=== PATIENT | female | born 1985 | race Caucasian/White ===

== ENCOUNTER 2022-06-26 01:00 | Emergency (ER) | payer MEDICARE, MEDICAID, SELFPAY ==
[2022-06-26 01:09] VITALS: BP 130/74; PULSE 128; RESP 18; TEMP 36.8; O2SAT 96
[2022-06-26 01:13] VITALS: BP 130/70; BP 130/74; PULSE 129; PULSE 70; RESP 20; O2SAT 95; BMI 25.4
--- NOTE | 2022-06-26 01:25 | PC.NURSE ---
pt states she uses [facility] in [facility] . none found.
--- NOTE | 2022-06-26 01:54 | ED_ITS ---
HPI - Alcohol General Chief Complaint: ETOH/Substance Use Stated Complaint: ETOH Time Seen by Provider: 06/26/22 01:54 Source: patient Mode of arrival: EMS Limitations: no limitations History of Present Illness HPI narrative: Patient alcoholic found intoxicated on the street brought by EMS patient denies any SI or HI refused to go to detox does not want any help no fall no nausea vomiting abdominal pain Related Data Allergies Allergy/AdvReac Type Severity Reaction Status Date / Time azithromycin Allergy Anaphylaxis Verified 06/26/22 01:20 Review of Systems Review of Systems: Yes all other systems are reviewed and are negative [facility] Social History Social History Advance Directives: No Physical Exam ED Vital Signs: Vital Signs - 24 hr 06/26/22 01:09 06/26/22 01:13 06/26/22 02:52 Temperature 98.2 F Pulse Rate 128 H 129 H 98 Respiratory Rate 18 20 16 Blood Pressure 130/74 130/74 148/84 H Pulse Oximetry 96 95 96 Oxygen Delivery Method Room Air Room Air Room Air BMI result Body Mass Index 25.4 Appearance: Alert. Oriented X3. No acute distress. ETOH+ Eyes: PERRLA, No Nystagmus HEENT: Pharynx normal. Oral Mucosa moist atraumatic normocephalic Neck: Normal inspection. Neck supple. CVS: Normal heart rate and rhythm. Pulses normal. Respiratory: No respiratory distress. Equal air entry bilateral, no wheezing/rales/rhonchi Abdomen: Soft and nontender. Bowel sounds are present, no mass palpable, no CVA tenderness Skin: Skin warm and dry. Normal skin color. Normal skin turgor. Extremities: No lower extremity edema. No calf tenderness Neuro: Oriented X 3. No motor deficit. No sensory deficit.No cerebellar signs , cranial nerves II-XII intact MDM - Alcohol MDM Narrative Medical decision making narrative: Patient walking in a steady gait called her family does want to stay in the hospital discharge patient home advised to stop drinking follow with detox Discharge Plan Discharge Clinical Impression: Alcoholic intoxication Patient Disposition: Home, Self-Care Instructions: Alcohol Intoxication (ED) Additional Instructions: Stop drinking alcohol Follow-up with detox Interventions: ED Discharge Assessment Last Done: 06/26/22 03:29 Discharge Date/Time: 06/26/22 03:10
--- NOTE | 2022-06-26 02:48 | PC.NURSE ---
Pt A+Ox3, walks with steady gait, Sister Carmen to drive her home.
[2022-06-26 02:52] VITALS: BP 148/84; PULSE 98; RESP 16; O2SAT 96
== END 2022-06-26 03:10 | disposition home or self-care (01) ==
PROVIDERS: Emergency Provider Internal Medicine
DX: F10.920 Alcohol use, unspecified with intoxication, uncomplicated (principal); Y90.9 Presence of alcohol in blood, level not specified
CPT/HCPCS: 99282; 99284

== ENCOUNTER 2025-06-18 15:25 | Observation (INO) | payer MEDICARE, MEDICAID, SELFPAY ==
--- NOTE | ~2025-06-18 | CT_ITS ---
EXAMINATION: CT HEAD WITHOUT CONTRAST (STROKE PROTOCOL) CLINICAL INFORMATION: Stroke protocol. [Dysarthria. Difficulty walking. COMPARISON: None available. TECHNIQUE: Contiguous axial imaging was performed from the skull base to vertex without intravenous administration of contrast. This CT examination was performed using dose optimization techniques as appropriate, variously including the following: *Automated exposure control *Adjustment of mA and/or kV according to patient size (this includes techniques or standardized protocols for targeted exams where dose is matched to indication/reason for exam; i.e. extremities or head) *Use of iterative reconstruction technique DLP: 609 mGy centimeter. FINDINGS: Patient's motion artifact. No acute intracranial hemorrhage, mass effect, midline shift, hydrocephalus or herniation. [place]connor-white matter differentiation is normal. Posterior cranial fossa contents demonstrated no acute hemorrhage or gross mass effect. Sellar/suprasellar region demonstrated no gross masses. Normal position of the cerebellar tonsils. No air-fluid levels in the paranasal sinuses. No acute fracture in the bony calvarium. Tympanic cavities and mastoid cells are aerated. Pneumatized left petrous apex, congenital. CT/CT head for STROKE IMPRESSION: No acute intracranial hemorrhage. No acute brain abnormality by CT. This critical result was discussed via tiger connect with Dr. Josefina Muniz, emergency physician at 3:55 PM hours on June 18, 2025. It was ascertained that the content and urgency of the report was understood at the time of direct communication. Electronically signed by: Austin Sheridan MD 06/18/2025 03:57 PM EDT
--- NOTE | ~2025-06-18 | CT_ITS ---
EXAMINATION: CTA NECK WITH CONTRAST (STROKE) CTA BRAIN WITH CONTRAST (STROKE) CLINICAL INFORMATION: Suspect acute stroke. Assess for major vessel occlusion. Please call report. COMPARISON: None available. TECHNIQUE: CTA of the head and neck was performed in the axial plane from the mediastinum to the skull vertex using 70 mL Omnipaque 350 intravenous contrast. Additional reformatted multiplanar images including maximum intensity projection MIP images are generated on the CT workstation. This CT examination was performed using dose optimization techniques as appropriate, variously including the following: *Automated exposure control *Adjustment of mA and/or kV according to patient size (this includes techniques or standardized protocols for targeted exams where dose is matched to indication/reason for exam; i.e. extremities or head) *Use of iterative reconstruction technique FINDINGS: The degree of stenosis determined by criteria similar to NASCET. CT BRAIN: Contrast CT brain reveals no abnormal enhancement, mass or mass effect. CHEST AND NECK CTA: Visualized thoracic aorta is of normal caliber without aneurysm or dissection. There is mild ectasia of the right brachiocephalic artery but widely patent. The left common carotid and subclavian artery are widely patent. Visualized bilateral common carotid, bifurcation, bulb and bilateral proximal internal carotid arteries are patent throughout their entire course. Bilateral external carotid arteries are patent as well. Both vertebral arteries are codominant and patent in their entire course of the neck. The major intracranial venous sinuses are patent. The jugular veins are patent as well. BRAIN CTA: Both code and vertebral arteries March the form a basal artery. The basilar artery is of normal caliber without any aneurysm or obstruction. Bilateral posterior cerebral, superior cerebellar, bilateral anterior inferior cerebellar and bilateral posterior inferior cerebellar arteries are widely patent. Bilateral petrous, cavernous, supraclinoid ICA segments of internal carotid artery are widely patent. There is normal bifurcation of the carotid arteries into anterior and middle several arteries. Both middle and anterior cerebral arteries are patent. No evidence of aneurysm with thrombus is visualized. There is normal trifurcation of middle cerebral artery branches. There is normal espinal-white matter parenchymal vascularity seen throughout the cerebral hemispheres as well as cerebellar hemisphere. CT NECK: Visualized bilateral parotid, submandibular gland and thyroid lobes are symmetrical. The airways appears widely patent. The tonsils of bilateral symmetrical. The oral cavity is limited evaluation secondary to dental artifact. The prevertebral and the paravertebral soft tissues are normal. The airway is widely patent. The lung apices are clear. Incidental finding of bilateral augmented breasts are noted. CT/CT angio head neck STROKE IMPRESSION: Unremarkable CTA neck and brain. Unremarkable contrast-enhanced CT brain and neck. This critical test result is communicated to: Dr. Josefina Muniz in ER by phone at 4:18 PM Electronically signed by: Walter Piper MD 06/18/2025 04:20 PM EDT
--- NOTE | ~2025-06-18 | MR_ITS ---
CLINICAL HISTORY: Stroke r o --- Additional Notes or Special Instructions: Pt with slurred speech and unsteady gait noted by mother . Questioned TIAPt moved thru the whole scan despite multiple reminders, cushions supported head. Scanned Blades as possible. Unable to repeat MR Brain without intravenous contrast Comparison: Head CT from 06/18/2025 Findings: Multiple sequences are degraded by motion artifacts. No restricted diffusion arterial territorial infarction. No definite acute small infarction accounting for motion artifacts. No midline shift or hydrocephalus. Perivascular spaces noted particularly in the left basal ganglia region (image 13 of series 8). Linear artifacts including about superior frontal gyri and periphery of the brain, including repeated attempted diffusion imaging. No acute intracranial hemorrhage or peripheral siderosis accounting for artifacts. Mild fluid and mucosal thickening of the multifocal paranasal sinuses. Trace right and small left mastoid effusions. Orbits are unremarkable for technique and artifacts. Question soft tissue swelling and air-fluid of the superficial scalp, including left frontal convexity. IMPRESSION: 1. No restricted diffusion acute brain infarction, accounting for artifacts. 2. Essentially normal noncontrast signal of the brain parenchyma, accounting for artifacts. This document has been electronically signed by: Jose Patel MD on 06/18/2025 20:10:22
--- NOTE | 2025-06-18 15:34 | ECG_ITS ---
Test Reason : STROKE Blood Pressure : */* mmHG Vent. Rate : 113 BPM Atrial Rate : 113 BPM P-R Int : 146 ms QRS Dur : 84 ms QT Int : 340 ms P-R-T Axes : 58 26 51 degrees QTcB Int : 466 ms Sinus tachycardia Otherwise normal ECG No previous ECGs available Referred By: Josefina Muniz Electronically Signed By: Tushar Jenkins
[2025-06-18 15:43] LABS: Prothrombin Time Whole Bld POC 10.1 sec (11.1-13.5); ~PT, ~INR - Anti Coag Clinic 0.8 (0.9-1.1)
[2025-06-18 15:45] LABS: MANUAL DIFF FLAG NO
[2025-06-18 15:46] LABS: Hematocrit 45.6 % (37.0-47.0); Hemoglobin 16.7 g/dl (12.0-16.0); Imm Gran Abs Auto 0.03 X10*3/uL (0.00-0.03); Imm Gran Pct Auto 0.3 % (0.0-0.4); Lymphocytes Absolute Auto 2.8 X10*3/uL (1.2-4.9); Mean Corpuscular HGB Conc 36.6 g/dl (31.0-35.0); Mean Corpuscular Hemoglobin 32.1 pg (27.0-33.0); Mean Corpuscular Volume 87.5 fL (80.0-98.0); NRBC Abs Auto 0.000 X10*3/uL (0.0-0.012); NRBC Pct Auto 0.0 /100WBC (0.0-0.2); Platelet Count 201 X10*3/uL (160-400); Red Blood Count 5.21 X10*6/uL (4.20-5.50); White Blood Count 9.6 X10*3/uL (4.8-10.8)
[2025-06-18 16:02] VITALS: BP 122/87; BP 133/80; PULSE 100; PULSE 130; RESP 18; TEMP 36.8; O2SAT 95; BMI 24.0
[2025-06-18 16:07] LABS: Appearance Urine Cloudy; Glucose Urine UA >=1000 mg/dL (Negative); PH 5.5 (5.0-9.0); Specific Gravity - Urine 1.025 (1.005-1.025); UMIC TRIGGER UACC YES
--- NOTE | 2025-06-18 16:07 | PC.NURSE ---
Pt unable or unwilling to hold still during CT scan or EKG, despite repeated requests to hold still by staff; pt ambulated to BR with 1 assist, very unsteady on feet; pt requesting medication for anxiety at this time; made aware; pt remains restless on stretcher; equal movement of all extremities at this time
[2025-06-18 16:10] LABS: Alanine Aminotransferase 24 U/L (0-31); Albumin Level 4.6 g/dL (3.5-5.0); Alkaline Phosphatase 90 U/L (39-117); Anion Gap 15 (12-20); Aspartate Amino Transferase 23 U/L (5-31); Blood Urea Nitrogen 12 mg/dL (9-16); Calcium 9.5 mg/dL (8.4-10.2); Carbon Dioxide 21 mmol/L (22-29); Chloride 104 mmol/L (96-108); Creatinine Clr Calc Pharmacy 76.2; Estimated Glomerular Filt Rate > 60; Magnesium 1.9 mg/dL (1.6-2.6); Potassium 4.4 mmol/L (3.3-5.1); Sodium 136 mmol/L (135-145); Total Protein 7.9 g/dL (6.5-8.0)
--- NOTE | 2025-06-18 16:12 | ED_ITS ---
HPI - Neuro Symptoms/Deficit General Chief Complaint: Stroke Stated Complaint: STROKE ALERT Time Seen by Provider: 06/18/25 15:32 Source: patient and EMS Mode of arrival: EMS Limitations: other History of Present Illness ED Provider: Dr. Josefina Muniz HPI Narrative: Patient comes to the emergency room via ambulance, complaining of slurred speech and difficulty walking. According to EMS, the patient lives with her mother. The last time that the patient was seen well, at baseline was last night at 22:30 (17 hours ago). Per EMS, the patient's mother left the house at 04:30 in the morning today to go to work. Patient states that she woke up at 09:30, did not notice any symptoms. Around 10:30 when the patient's mother got back, the mother reported that patient has seemed to be unsteady on her feet. Patient's mother states that the patient had slurred speech. On arrival, patient does have a bit of slurred speech, denies any recent EtOH or drug use. Overall, patient is poor historian. Patient states that her speech does sound different to her. Otherwise, patient states that she has no weakness in upper or lower extremities Related Data Allergies Allergy/AdvReac Type Severity Reaction Status Date / Time azithromycin Allergy Anaphylaxis Verified 06/18/25 16:05 Review of Systems 2 Review of Systems: Constitutional : No Weight loss, No Fever, No Chills, No Night Sweats, No Fatigue, No Malaise ENT/Mouth : No Hearing loss, No Ear Pain, No Nasal Congestion, No Sinus Pain, No Hoarseness, No sore throat, No Rhinorrhea, No Swallowing Difficulty Eyes: No Eye Pain, No Swelling, No Redness, No Foreign Body, No Discharge, No Vision Changes Cardiovascular : No Chest Pain, No SOB, No Dyspnea on Exertion, No Orthopnea, No Edema, No Palpitations Respiratory : No Cough, No Sputum, No Wheezing, No Smoke Exposure, No Dyspnea Gastrointestinal : No Nausea, No Vomiting, No Diarrhea, No Constipation, No abdominal Pain, No Hematochezia, No Melena Genitourinary : no irregular bleeding, No Dysuria, No Urinary Frequency, No Hematuria, No Urinary Incontinence, No Urgency, No Flank Pain, No Urinary Flow Changes, No Hesitancy Musculoskeletal : No joint pain, No Myalgias, No Joint Swelling Skin : No Skin Lesions, No rash Neuro : Earlier today, patient's mother reported unsteady gait, slurred speech Psych : No Anxiety/Panic, No Depression, No SI/HI/AH/VH, No Social Issues, Heme/Lymph: No Bruising, No Bleeding,No Lymphadenopathy Endocrine : No Polyuria, No Polydipsia, No Temperature Intolerance [facility] Social History Social History Alcohol intake: unknown Physical Exam 2 Exam: Exam: Appearance: Alert. Oriented X3. Patient is poor historian Eyes: Pupils equal, round and reactive to light. ENT: Pharynx normal. Neck: Normal inspection. Neck supple. No lymph nodes noted. No crepitus CVS: Normal heart rate and rhythm. Pulses normal. Normal S1 and S2 Respiratory: No respiratory distress. Breath sounds normal. No Wheezing. No rales Abdomen: Soft and nontender. No rigidity. No distention. Skin: Skin warm and dry. Normal skin color. Normal skin turgor. Extremities: No lower extremity edema. No Lacerations. No Rash Neuro: Patient does have slight slurred speech, cranial nerves 2-12 grossly intact, NIH score 1 Psych: calm, cooperative, normal affect Vital Signs: Vital Signs: Last Vital Signs Temp 98.2 F 06/18/25 16:02 Pulse 100 06/18/25 16:02 Resp 18 06/18/25 16:02 BP 122/87 06/18/25 16:02 Pulse Ox 95 06/18/25 16:02 O2 Del Method Room Air 06/18/25 16:02 BMI result Body Mass Index 24.0 Course Course Course Narrative: Patient does have slurred speech. Patient is poor historian. Overall, it is very difficult to determine at what time the patient had the onset of symptoms. The last time that the patient was seen well was 17 hours prior to arrival. Patient woke up around 9-930 in the morning in the morning, patient states that she is not sure if she noticed something wrong with herself. Overall, patient is outside of the window of treatment with TNK CT scans of the head and neck pending, labs pending. Medical Decision Making Medical Decision Making [facility] Narrative: My interpretation of labs: No significant abnormality in patient's hematology or chemistry, urinalysis positive for UTI, urine toxicology positive for marijuana, negative for other drugs of abuse, negative alcohol CT scan of the head without contrast negative, CTA of head and neck do not show any acute abnormality. Overall, patient's speech did improve It is possible that patient had TIA versus CVA versus side-effect of THC I discussed the patient with Dr. Wiley from the Medicine team Differential Diagnosis Differential Diagnoses: The differential diagnosis associated with the presentation includes (As above) Admission/Observation Consideration of admission/observation: Escalation of care including admission/observation considered Consult Healthcare Provider Management of the patient was discussed with: Hospitalist Lab Data [facility] Lab Attestation statement: I reviewed the patient's lab results. 06/18/25 15:36 06/18/25 15:36 Labs: Lab Results 06/18/25 06/18/25 Range/Units 15:36 15:58 WBC 9.6 (4.8-10.8) X10*3/uL RBC 5.21 (4.20-5.50) X10*6/uL Hgb 16.7 H (12.0-16.0) g/dl Hct 45.6 (37.0-47.0) % MCV 87.5 (80.0-98.0) fL MCH 32.1 (27.0-33.0) pg MCHC 36.6 H (31.0-35.0) g/dl RDW 11.8 (11.0-16.0) % Plt Count 201 (160-400) X10*3/uL MPV 9.2 L (9.4-12.3) fL Immature Gran % (Auto) 0.3 (0.0-0.4) % Neut % (Auto) 64.5 (45-73) % Lymph % (Auto) 28.7 (20-40) % [place] % (Auto) 5.5 (2-11) % Eos % (Auto) 0.6 (0-4) % Baso % (Auto) 0.4 (0-2) % Lymph # (Auto) 2.8 (1.2-4.9) X10*3/uL [place] # (Auto) 0.5 (0.1-1.2) X10*3/uL Eos # (Auto) 0.1 (0.0-0.4) X10*3/uL Baso # (Auto) 0.0 (0.0-0.2) X10*3/uL Abs Immat Gran (auto) 0.03 (0.00-0.03) X10*3/uL Absolute Neuts (auto) 6.2 (2.0-8.3) x10*3/uL Absolute Nucleated RBC 0.000 (0.0-0.012) X10*3/uL Nucleated RBC % (auto) 0.0 (0.0-0.2) /100WBC Hold Purple Top SEE NOTE Whole Blood PT 10.1 L (11.1-13.5) sec Whole Blood INR 0.8 L (0.9-1.1) Hold Blue Top SEE NOTE Sodium 136 (135-145) mmol/L Potassium 4.4 (3.3-5.1) mmol/L Chloride 104 (96-108) mmol/L Carbon Dioxide 21 L (22-29) mmol/L Anion Gap 15 (12-20) BUN 12 (9-16) mg/dL Creatinine 0.76 (0.5-1.4) mg/dL Estim Creat Clear Calc 76.2 Estimated GFR > 60 Random Glucose 281 H (60-115) mg/dL Calcium 9.5 (8.4-10.2) mg/dL Magnesium 1.9 (1.6-2.6) mg/dL Total Bilirubin 0.6 (0.0-1.0) mg/dL Direct Bilirubin 0.1 (0.0-0.5) mg/dL AST 23 (5-31) U/L ALT 24 (0-31) U/L Alkaline Phosphatase 90 (39-117) U/L Troponin I High Sens < 2.7 (<3.5-17.0) ng/L Total Protein 7.9 (6.5-8.0) g/dL Albumin 4.6 (3.5-5.0) g/dL Hold Green Top See Note Hold Yellow Top See Note Urine Color Yellow Urine Appearance Cloudy Urine pH 5.5 (5.0-9.0) Ur Specific [place] 1.025 (1.005-1.025) Urine Protein 30 (1+) H (Neg-Trace) mg/dL Urine Glucose (UA) >=1000 H (Negative) mg/dL Urine Ketones Trace (Negative) mg/dL Urine Blood Large (3+) H (Negative) Urine Nitrite Negative (Negative) Ur Leukocyte Esterase Small (1+) H (Negative) Urine RBC >20 H (0-2) /HPF Urine WBC 11-20 H (0-5) /HPF Ur Squamous Epith Cells 11-20 (0-2) /HPF Urine Bacteria 2+ (None Seen) Hyaline Casts 0-2 (0-2) /LPF Urine Opiates Screen Not Detected (Not Detect) Ur Buprenorphine Scrn Not Detected (Not Detect) ng/mL Ur Oxycodone Screen Not Detected (Not Detect) ng/mL Urine Methadone Screen Not Detected (Not Detect) ng/mL Urine Fentanyl Screen Not Detected (Not Detect) Ur Barbiturates Screen Not Detected (Not Detect) Ur Phencyclidine Scrn Not Detected (Not Detect) Ur Amphetamines Screen Not Detected (Not Detect) U Benzodiazepines Scrn Not Detected (Not Detect) Urine Cocaine Screen Not Detected (Not Detect) U Marijuana (THC) Screen POSITIVE H (Not Detect) Ethyl Alcohol < 10 mg/dL Independent Interpretation I performed an independent interpretation of an: CT Scan Radiology Impression Discussion of test interpretation with radiology: I discussed test interpretation with the radiologist and I have reviewed the radiologist's reading. Radiologist Impression: CT BRAIN: Contrast CT brain reveals no abnormal enhancement, mass or mass effect. CHEST AND NECK CTA: Visualized thoracic aorta is of normal caliber without aneurysm or dissection. There is mild ectasia of the right brachiocephalic artery but widely patent. The left common carotid and subclavian artery are widely patent. Visualized bilateral common carotid, bifurcation, bulb and bilateral proximal internal carotid arteries are patent throughout their entire course. Bilateral external carotid arteries are patent as well. Both vertebral arteries are codominant and patent in their entire course of the neck. The major intracranial venous sinuses are patent. The jugular veins are patent as well. BRAIN CTA: Both code and vertebral arteries March the form a basal artery. The basilar artery is of normal caliber without any aneurysm or obstruction. Bilateral posterior cerebral, superior cerebellar, bilateral anterior inferior cerebellar and bilateral posterior inferior cerebellar arteries are widely patent. Bilateral petrous, cavernous, supraclinoid ICA segments of internal carotid artery are widely patent. There is normal bifurcation of the carotid arteries into anterior and middle several arteries. Both middle and anterior cerebral arteries are patent. No evidence of aneurysm with thrombus is visualized. There is normal trifurcation of middle cerebral artery branches. There is normal espinal-white matter parenchymal vascularity seen throughout the cerebral hemispheres as well as cerebellar hemisphere. CT NECK: Visualized bilateral parotid, submandibular gland and thyroid lobes are symmetrical. The airways appears widely patent. The tonsils of bilateral symmetrical. The oral cavity is limited evaluation secondary to dental artifact. The prevertebral and the paravertebral soft tissues are normal. The airway is widely patent. The lung apices are clear. Incidental finding of bilateral augmented breasts are noted. CT/CT angio head neck STROKE IMPRESSION: Unremarkable CTA neck and brain. Unremarkable contrast-enhanced CT brain and neck. NIH Stroke Scale Internal: Initial- Upon Arrival Level of Consciousness: Alert Level of Consciousness Questions: Answers both questions correctly Level of Consciousness Commands: Performs both tasks correctly Best Gaze: Normal Visual: No visual loss Facial Palsy: Normal Motor Arm (Right): No drift Motor Arm (Left): No drift Motor Leg (Right): No drift Motor Leg (Left): No drift Limb Ataxia: Absent Sensory: Normal Best Language: No aphasia Dysarthia: Mild to moderate dysarthria Extinction and Inattention: No abnormality Score: 1 Critical Care Time Critical Care Time Critical Care Time: Yes Total Critical Care Time: 60 Attestation: I have personally provided critical care time. Time includes review of lab data, radiology results, discussion with consultants, and monitoring for potential decompensation. Intervention performed as documented. Discharge Plan Discharge Clinical Impression: Transient cerebral ischemia Patient Disposition: Admitted As Inpatient Print Language: Thai
--- NOTE | 2025-06-18 16:12 | MHC.EDTECH ---
this tech, notified Mac broderick pt requested anxiety medicine. pt repeatly requesting it.
[2025-06-18 16:13] LABS: Troponin-I High Sensitivity < 2.7 ng/L (<3.5-17.0)
[2025-06-18 16:17] LABS: Cannabinoid Screen Urine POSITIVE (Not Detect)
[2025-06-18 16:19] LABS: UACC Culture Trigger YES
[2025-06-18 16:35] LABS: Glucose, Whole Blood 256 mg/dL (60-115)
--- NOTE | 2025-06-18 16:56 | PM.IMHP ---
History of Present Illness Date of Service: 06/18/25 Attending physician on admission: [facility] Chief Complaint: Slurred speach Pt is a 39-year-old female with a PMH significant for?dmf-umfdepz-hraulsixs type 2 diabetes who presents to the ED with?slurred speech and unsteady gait since earlier this morning. Pt went to bed in her normal state of health at approximately 23:30 last night. Pt lives with her mother who noted pt was having difficulty walking and had slurred speech and approximately 10 30 this morning. Pt herself reports when she awoke she felt in her normal state of health, and knew that she was having difficulty speaking. Reports felt ?off balance? and was bumping into berry, as well as falling to the floor at least once. Pt denies any similar experience in the past. Denies fogginess and thinking. No headache. No acute changes in vision. Denies hemiparesis or difficulty grabbing objects. Currently denies any musculoskeletal pain, including arms, legs, hips, or shoulders. Currently reports feels like she is back to baseline with speaking. Pt denies alcohol or illicit substance use, though notes she does smoke marijuana. Last use last night when she smokes marijuana that was provided by her father in law. Is uncertain of it origin and this was her first use of that particular stash. In the ED pt with elevated HR of 100, vitals otherwise stable and WNL. Labs were overall grossly unremarkable and around baseline for pt. No leukocytosis. No significant electrolyte abnormalities. Renal and hepatic function WNL. UA concerning for possible UTI. CXR showed CT?of head negative for acute intracranial hemorrhage or brain abnormality. CTA of head/neck negative for acute abnormality. EKG demonstrated normal sinus rhythm without evidence of significant ischemia. Pt was treated in the ED with ceftriaxone and aspirin. Pt is admitted to the hospital under observation for treatment and further evaluation of slurred speech and ataxia concerning for possible TIA. Review of Systems Review of Systems: Negative except for that which is stated in the HPI. [facility] Medical History (Updated 06/18/25 @ 19:22 by NINOSKA Hicks) Non-insulin dependent type 2 diabetes mellitus Social History Alcohol intake: unknown Patient Tobacco Use Status: Current everyday Tobacco user Meds Allergies Allergy/AdvReac Type Severity Reaction Status Date / Time azithromycin Allergy Anaphylaxis Verified 06/18/25 16:05 Active Medications: Current Medications Sodium Chloride (0.9 % Sodium Chloride Flush 3 Ml Syringe) 3 ml IVFLUSH QSHIFT [facility] Home Medications ?Medication ?Instructions ?Recorded ?Confirmed ?Last Taken ?Type metformin 500 mg tablet,extended 1,000 mg PO BID 06/18/25 06/18/25 06/18/25 History release 24 hr Physical Exam Vital Signs and Narrative: Vital Signs: Last Vital Signs Temp 98.2 F 06/18/25 16:02 Pulse 100 06/18/25 16:02 Resp 18 06/18/25 16:02 BP 122/87 06/18/25 16:02 Pulse Ox 95 06/18/25 16:02 O2 Del Method Room Air 06/18/25 16:02 BMI result Body Mass Index 24.0 General: AOx3, no acute distress Resp: CTA bilaterally CVS: S1, S2, RRR GI: +BS, NT, no distention Skin: Warm, dry Neuro: Cranial nerves II-XII grossly intact bilaterally. Motor grossly intact bilaterally. Negative pronator drift. Face symmetric and full, no dysarthria or facial droop noted. Sensation to light touch intact on face, as well as upper and lower extremities bilaterally. Strength full and symmetric of upper and lower extremities bilaterally. Tongue midline. Extremities: No edema Psych: Appropriate affect Results Labs 06/18/25 15:36 06/18/25 15:36 Labs: Laboratory Results - last 24 hr 06/18/25 06/18/25 06/18/25 15:28 15:36 15:58 MCV 87.5 MCH 32.1 MCHC 36.6 H RDW 11.8 Plt Count 201 MPV 9.2 L Immature Gran % (Auto) 0.3 Neut % (Auto) 64.5 Lymph % (Auto) 28.7 [place] % (Auto) 5.5 Eos % (Auto) 0.6 Baso % (Auto) 0.4 Lymph # (Auto) 2.8 [place] # (Auto) 0.5 Eos # (Auto) 0.1 Baso # (Auto) 0.0 Abs Immat Gran (auto) 0.03 Absolute Neuts (auto) 6.2 Absolute Nucleated RBC 0.000 Nucleated RBC % (auto) 0.0 Hold Purple Top SEE NOTE Whole Blood PT 10.1 L Whole Blood INR 0.8 L Hold Blue Top SEE NOTE Anion Gap 15 Estim Creat Clear Calc 76.2 Estimated GFR > 60 POC Glucose 256 H Random Glucose 281 H Calcium 9.5 Magnesium 1.9 Total Bilirubin 0.6 Direct Bilirubin 0.1 AST 23 ALT 24 Alkaline Phosphatase 90 Total Protein 7.9 Albumin 4.6 Hold Green Top See Note Hold Yellow Top See Note Urine Color Yellow Urine Appearance Cloudy Urine pH 5.5 Ur Specific [place] 1.025 Urine Protein 30 (1+) H Urine Glucose (UA) >=1000 H Urine Ketones Trace Urine Blood Large (3+) H Urine Nitrite Negative Ur Leukocyte Esterase Small (1+) H Urine RBC >20 H Urine WBC 11-20 H Ur Squamous Epith Cells 11-20 Urine Bacteria 2+ Hyaline Casts 0-2 Urine Opiates Screen Not Detected Ur Buprenorphine Scrn Not Detected Ur Oxycodone Screen Not Detected Urine Methadone Screen Not Detected Urine Fentanyl Screen Not Detected Ur Barbiturates Screen Not Detected Ur Phencyclidine Scrn Not Detected Ur Amphetamines Screen Not Detected U Benzodiazepines Scrn Not Detected Urine Cocaine Screen Not Detected U Marijuana (THC) Screen POSITIVE H Ethyl Alcohol < 10 Imaging Radiologist's Impressions: Impressions Head CT 06/18/25 14:39 IMPRESSION: No acute intracranial hemorrhage. No acute brain abnormality by CT. This critical result was discussed via tiger connect with Dr. Josefina Muniz, emergency physician at 3:55 PM hours on June 18, 2025. It was ascertained that the content and urgency of the report was understood at the time of direct communication. Electronically signed by: Austin Sheridan MD 06/18/2025 03:57 PM EDT RP Head/Neck CTA 06/18/25 15:44 IMPRESSION: Unremarkable CTA neck and brain. Unremarkable contrast-enhanced CT brain and neck. This critical test result is communicated to: Dr. Josefina Muniz in ER by phone at 4:18 PM Electronically signed by: Walter Piper MD 06/18/2025 04:20 PM EDT RP Assessment and Plan (1) Ataxia: Status: Acute (2) Slurred speech: Status: Acute Plan Pt is a 39-year-old female with a PMH significant for?hai-czfxagh-kcbkajchb type 2 diabetes who presents to the ED with?slurred speech and unsteady gait since earlier this morning. Pt is admitted to the hospital under observation for treatment and further evaluation of slurred speech and ataxia concerning for possible TIA. Slurred speech and ataxia Noted this morning by mother, last known well time 23:30 last night Currently resolved, pt appears back to baseline; no focal deficits noted CTA of head and CTA of head/neck negative for acute abnormalities Will check MRI of head/brain Lipid profile Neurology consult Monitor on telemetry Yyu-tfjdudv-hsgatufxy type [address] on sliding scale insulin, diabetic diet Nicotine dependence Currently smoke half a pack a day NRT Full Code Attending:?Dr. Wiley DVT Prophylaxis: Pt ambulatory, here for observation Pt will be admitted to the hospital under observation for treatment and further evaluation of slurred speech and ataxia concerning for possible TIA. Quality Stroke Does the patient have a stroke diagnosis?: No VTE Prior VTE?: No VTE Risk Level:: Medical - moderate - high VTE Device Contraindication: Treatment Not Indicated VTE Drug Contraindication: Treatment Not Indicated
[2025-06-18 17:10] LABS: Lipase 15 U/L (8-78)
[2025-06-18] MEDS: Aspirin Enteric Coated 325 MG TABLET.DR PO (17:10)
[2025-06-18 17:52] VITALS: BP 139/84; PULSE 100; RESP 18; O2SAT 96
--- NOTE | 2025-06-18 18:05 | PHA.MEDREC ---
Addendum entered by Tobi Gray RPh 06/18/25 18:09: [facility] rec reviewed Original Note: Pharmacy Consult ? Medication Reconciliation Pharmacy has completed the medication reconciliation. Patient reported she only takes Metformin ER 1,000 mg ( 2x 500mg) BID, last dose was this morning.
--- NOTE | 2025-06-18 19:54 | PC.NURSE ---
assumed care of pt, taken for MRI. Pt now back and resting comfortably. Pt respirations are even and unlabored.
--- NOTE | 2025-06-18 20:22 | PC.NURSE ---
pt taken for MRI prior to previous nurse administering Ativan to help with anxiety before MRI.
[2025-06-18 20:35] LABS: Glucose, Whole Blood 212 mg/dL (60-115)
--- NOTE | 2025-06-18 20:42 | PC.NURSE ---
pt medicated per MAR, 4 units per protocol (bs 212)
[2025-06-19] MEDS: 0.9 % Sodium Chloride Flush 3 ML SYRINGE IVFLUSH (01:43)
--- NOTE | 2025-06-19 05:28 | PC.NURSE ---
called pt mother Kaleigh for update. Advised pt will be stayiong for further observation. Mom states she will be coming in to visit with pt shortly.
[2025-06-19 05:49] VITALS: BP 125/84; PULSE 102; RESP 18; TEMP 36.6; O2SAT 98
[2025-06-19 07:55] VITALS: BP 131/71; PULSE 82; RESP 21; TEMP 36.6; O2SAT 95
[2025-06-19 07:55] LABS: Glucose, Whole Blood 288 mg/dL (60-115)
[2025-06-19 08:40] VITALS: BP 119/76; PULSE 99; RESP 16; TEMP 36.1; O2SAT 95
[2025-06-19 08:43] VITALS: BMI 23.1
--- NOTE | 2025-06-19 10:35 | MHC.CM.PN ---
Addendum entered by Ingrid Tovar RN 06/19/25 10:38: PT DISCHARGING HOME SELF CARE LATER TODAY, PT WILL CALL FAMILY FOR TRANSPORT. Original Note: MICHELA 06/19/25, EMR REVIEWED, PT W/TIA SYMPTOMS RESOLVES, CLEARED BY OT/PT. CM MET W/PT WHO REPORTS SHE LIVES W/FAMILY, DIS FULLY INDEP, DENIES USE OF DME/SERVICES AND GOAL IS HOME. PT VERIFIES PCP IS MARKOS JULIAN AT [facility] AND REPORTS SHE HAS A HCP AT HOME AND IT IS HER GMOTHER [phone], COPY REQUESTED.
[2025-06-19 11:00] LABS: Glucose, Whole Blood 188 mg/dL (60-115)
[2025-06-19 11:16] VITALS: BP 121/74; PULSE 91; RESP 18; TEMP 36.7; O2SAT 94
[2025-06-19 11:19] LABS: Cholesterol 295 mg/dL (<200); HDL Cholesterol 43 mg/dL (>40); Triglycerides 455 mg/dL (<150)
--- NOTE | 2025-06-19 12:06 | PM.NEUROCN ---
History of Present Illness Data of Consult Service Date: 06/19/25 Primary Care Provider: Unknown Physician HPI Reason for consult: Slurred speech and balance problems acutely This is a 39-year-old female with a h/o xcx-aackxuv-rmyzeklbr type 2 diabetes who presented to the ED with?slurred speech and unsteady gait since earlier this morning. Pt went to bed in her normal state of health at approximately 23:30 last night. Pt lives with her mother who noted she was having difficulty walking and had slurred speech and approximately 10:30 on the morning of admission. She said that when she awoke she felt in her normal state of health, and knew that she was having difficulty speaking. Reports felt ?off balance? and was bumping into berry, as well as falling to the floor at least once. Pt denies any similar experience in the past. Denies fogginess and thinking. No headache. No acute changes in vision. Denies hemiparesis or difficulty grabbing objects. Currently denies any musculoskeletal pain, including arms, legs, hips, or shoulders. Currently reports feels like she is back to baseline with speaking. Pt denies alcohol or illicit substance use, though notes she does smoke marijuana. Last use last night when she smokes marijuana that was provided by her father in law. Is uncertain of it origin and this was her first use of that particular stash.CT head and CTA head and neck were normal. MRI limited by movement without acute stroke. She now feels that she is back to normal PMFSH Past Medical History Medical History Non-insulin dependent type 2 diabetes mellitus Social History Social History Household Members: Family Housing: House Do you presently have visiting nurse or other home services: No Alcohol intake: unknown Patient Tobacco Use Status: Current everyday Tobacco user Tobacco use type: Cigarette Cigarette Packs Per Day: 0.5 Cigarettes Per Day: 10.0 Years Smoked: 30 Smoked in Last 30 Days: Yes Patient Interested in Nicotine Replacement: Yes Patient Given Instructions on How to Stop Smoking: No (pt refused) Use of substances other than those prescribed or required for medical reasons: Unknown Have you been hit, kicked, punched, or otherwise hurt by someone within the past year? If so, by whom?: No Do you feel safe in your current relationship?: No Current Relationship Is there a partner from a previous relationship who is making you feel unsafe now?: No Are you made to feel afraid or neglected: No Advance Directives: No Advance Directives Information Provided: Yes Do you have a plan to hurt others: No Plan Recently lost weight without trying: No Nutrition Risks: Dental problems Patient : No : No Poor oral hygiene: Yes service: No Meds Allergies Allergy/AdvReac Type Severity Reaction Status Date / Time azithromycin Allergy Anaphylaxis Verified 06/18/25 16:05 Active Medications: Current Medications Acetaminophen (Acetaminophen 325 Mg Tablet) 650 mg PO Q6H PRN PRN Reason: Pain, Mild 1-3,fever,headache Aspirin (Aspirin 81 Mg Tab.Chew) 81 mg PO DAILY FORMERLY [facility], [facility]1983 Last Admin: 06/19/25 08:04 Dose: 81 mg Calcium Carbonate (Calcium Carbonate 750 Mg Tab.Chew) 750 mg PO Q4H PRN PRN Reason: Heartburn Dextrose (Dextrose 50 % 25 Gm/50 Ml Syringe) 25 gm IVPUSH Q15M PRN; Protocol PRN Reason: per Hypoglycemia Standing Ord. Glucose (Glucose Gel 15 Gm Gel..Gram.) 15 gm PO Q15M PRN; Protocol PRN Reason: per Hypoglycemia Standing Ord. Insulin Human Lispro (Insulin Lispro 100 Unit/Ml 3 Ml Vial) 0 unit SUBCUT QIDACHS FOR[facility]LY [facility], [facility]–1983; Protocol Last Admin: 06/19/25 11:37 Dose: 2 unit Magnesium Hydroxide (Milk Of Magnesia 30 Ml Oral.Susp) 30 ml PO DAILY PRN PRN Reason: Constipation Melatonin (Melatonin 3 Mg Tablet) 6 mg PO BEDTIME PRN PRN Reason: Insomnia Metformin HCl (Metformin Hcl Er 500 Mg Tab.Er.24h) 1,000 mg PO BID FOR[facility]LY [facility], [facility]1983 Last Admin: 06/19/25 08:04 Dose: 1,000 mg Nicotine (Nicotine 14 Mg Patch.Td24) 14 mg TRANSDERMA DAILY PRN PRN Reason: Nicotine Cravings Sodium Chloride (0.9 % Sodium Chloride Flush 3 Ml Syringe) 3 ml IVFLUSH QSHIFT FOR[facility]LY [facility], [facility] Last Admin: 06/19/25 08:21 Dose: Not Given Home Medications ?Medication ?Instructions ?Recorded ?Confirmed ?Last Taken ?Type metformin 500 mg tablet,extended 1,000 mg PO BID 06/18/25 06/18/25 06/18/25 History release 24 hr Physical Exam Vital Signs: Vital Signs: Last Vital Signs Temp 98.1 F 06/19/25 11:16 Pulse 91 06/19/25 11:16 Resp 18 06/19/25 11:16 BP 121/74 06/19/25 11:16 Pulse Ox 94 06/19/25 11:16 O2 Del Method Room Air 06/19/25 11:16 BMI result Body Mass Index 23.1 Neuro: Other: Normal nonfocal neurological examination Results Labs 06/18/25 15:36 06/18/25 15:36 Labs: Short CBC 06/18/25 Range/Units 15:36 WBC 9.6 (4.8-10.8) X10*3/uL Hgb 16.7 H (12.0-16.0) g/dl Hct 45.6 (37.0-47.0) % Plt Count 201 (160-400) X10*3/uL BMP 06/18/25 15:36 Sodium 136 Potassium 4.4 Chloride 104 Carbon Dioxide 21 L BUN 12 Creatinine 0.76 Calcium 9.5 Liver Function 06/18/25 Range/Units 15:36 Total Bilirubin 0.6 (0.0-1.0) mg/dL Direct Bilirubin 0.1 (0.0-0.5) mg/dL AST 23 (5-31) U/L ALT 24 (0-31) U/L Alkaline Phosphatase 90 (39-117) U/L Albumin 4.6 (3.5-5.0) g/dL Urine 06/18/25 Range/Units 15:58 Urine Color Yellow Urine Appearance Cloudy Urine pH 5.5 (5.0-9.0) Ur Specific [place] 1.025 (1.005-1.025) Urine Protein 30 (1+) H (Neg-Trace) mg/dL Urine Glucose (UA) >=1000 H (Negative) mg/dL Microbiology Microbiology Results: Microbiology 06/18/25 16:19 Urine clean catch - Clean Catch Midstream Urine Culture - Preliminary Culture too young to evaluate. Assessment and Plan (1) Slurred speech: Status: Acute Transient slurred speech and balance problems that have resolved spontaneously with negative neurological workup including MRI and CTA. One would be concerned of some sort of substance abuse. She does use marijuana. Nothing to suggest a migraine phenomena. No further neurological workup. She is cleared to be discharged from neurological perspective (2) Ataxia: Status: Acute Procedures Date of Service Date of Service: 06/19/25
[2025-06-19 15:17] VITALS: BP 126/83; PULSE 89; RESP 16; TEMP 36.1; O2SAT 95
--- NOTE | 2025-06-19 15:54 | PM.DS ---
DS: Providers Provider Date of Service: 06/19/25 Date of admission: 06/18/25 16:47 Date of discharge: 06/19/25 Primary care physician: Unknown Physician Consults: 06/18/25 16:52 Consult to Neurology Routine Consulting Provider: [facility] Reason for consultation: Slurred speech and unsteady gait, ?TIA DS: Diagnosis Discharge Diagnosis (1) Slurred speech: Status: Acute (2) Ataxia: Status: Acute DS: Summary Hospital Course Hospital Course: From admission HPI: Date of Service: 06/18/25 Attending physician on admission: [facility] Chief Complaint: Slurred speach Pt is a 39-year-old female with a PMH significant for?dgy-cwwcfah-rkswmvfeb type 2 diabetes who presents to the ED with?slurred speech and unsteady gait since earlier this morning. Pt went to bed in her normal state of health at approximately 23:30 last night. Pt lives with her mother who noted pt was having difficulty walking and had slurred speech and approximately 10 30 this morning. Pt herself reports when she awoke she felt in her normal state of health, and knew that she was having difficulty speaking. Reports felt ?off balance? and was bumping into berry, as well as falling to the floor at least once. Pt denies any similar experience in the past. Denies fogginess and thinking. No headache. No acute changes in vision. Denies hemiparesis or difficulty grabbing objects. Currently denies any musculoskeletal pain, including arms, legs, hips, or shoulders. Currently reports feels like she is back to baseline with speaking. Pt denies alcohol or illicit substance use, though notes she does smoke marijuana. Last use last night when she smokes marijuana that was provided by her father in law. Is uncertain of it origin and this was her first use of that particular stash. In the ED pt with elevated HR of 100, vitals otherwise stable and WNL. Labs were overall grossly unremarkable and around baseline for pt. No leukocytosis. No significant electrolyte abnormalities. Renal and hepatic function WNL. UA concerning for possible UTI. CXR showed CT?of head negative for acute intracranial hemorrhage or brain abnormality. CTA of head/neck negative for acute abnormality. EKG demonstrated normal sinus rhythm without evidence of significant ischemia. Pt was treated in the ED with ceftriaxone and aspirin. Pt is admitted to the hospital under observation for treatment and further evaluation of slurred speech and ataxia concerning for possible TIA. Hospital course: Pt was admitted to the hospital for difficulty walking and slurred speech concerning for possible TIA. Symptoms had resolved by the time they were admitted to the hospital, and imaging including CT of head, CTA of head/neck, and MRI of head/brain were all negative for acute intracranial abnormalities, including hemorrhage or acute infarct. Lipid profile was elevated with both triglycerides and total cholesterol. Pt was seen and evaluated by Neurology who thought symptoms were more related to marijuana use rather than anything neurological, and pt was cleared from a neurological perspective for discharge home. Pt will be discharged home on atorvastatin 20 mg daily at bedtime and with recommendation to follow up outpatient with PCP in 1-2 weeks for follow up and routine labs. Patient's UA was equivocal for acute UTI, and likely contaminated. Pt asymptomatic without dysuria or polyuria, and will not be discharged home on antibiotics. For wja-ovckhbn-hosazsoqm type 2 diabetes, continue metformin and diabetic diet. For nicotine dependence smoking cessation counseled. Time Attestation Discharge Coordination Time (in mins): 35 Quality: Safe Use of Opioids Does Pt have an Active Cancer Diagnosis on the Problem List?: No Quality: Stroke Does the patient have a stroke diagnosis?: No Physical Exam Exam: Exam: General: AOx3, no acute distress Resp: CTA bilaterally CVS: S1, S2, RRR GI: +BS, NT, no distention Skin: Warm, dry Neuro: Cranial nerves II-XII grossly intact bilaterally. Motor grossly intact bilaterally. Negative pronator drift. Face symmetric and full, no dysarthria or facial droop noted. Sensation to light touch intact on face, as well as upper and lower extremities bilaterally. Strength full and symmetric of upper and lower extremities bilaterally. Tongue midline. Extremities: No edema Psych: Appropriate affect Vital Signs: Vital Signs: Last Vital Signs Temp 97.0 F 06/19/25 15:17 Pulse 89 06/19/25 15:17 Resp 16 06/19/25 15:17 BP 126/83 06/19/25 15:17 Pulse Ox 95 06/19/25 15:17 O2 Del Method Room Air 06/19/25 15:17 BMI result Body Mass Index 23.1 DS: Data Data Completed and Pending Labs on day of discharge: Laboratory Results - last 24 hr 06/18/25 06/18/25 06/18/25 15:28 15:36 15:58 Sodium 136 Potassium 4.4 Chloride 104 Carbon Dioxide 21 L Anion Gap 15 BUN 12 Creatinine 0.76 Estim Creat Clear Calc 76.2 Estimated GFR > 60 POC Glucose 256 H Random Glucose 281 H Calcium 9.5 Magnesium 1.9 Total Bilirubin 0.6 Direct Bilirubin 0.1 AST 23 ALT 24 Alkaline Phosphatase 90 Troponin I High Sens < 2.7 Total Protein 7.9 Albumin 4.6 Triglycerides 455 H Cholesterol 295 H LDL Cholesterol, Calc TNP HDL Cholesterol 43 Lipase 15 Hold Green Top See Note Urine Color Yellow Urine Appearance Cloudy Urine pH 5.5 Ur Specific [place] 1.025 Urine Protein 30 (1+) H Urine Glucose (UA) >=1000 H Urine Ketones Trace Urine Blood Large (3+) H Urine Nitrite Negative Ur Leukocyte Esterase Small (1+) H Urine RBC >20 H Urine WBC 11-20 H Ur Squamous Epith Cells 11-20 Urine Bacteria 2+ Hyaline Casts 0-2 Urine Opiates Screen Not Detected Ur Buprenorphine Scrn Not Detected Ur Oxycodone Screen Not Detected Urine Methadone Screen Not Detected Urine Fentanyl Screen Not Detected Ur Barbiturates Screen Not Detected Ur Phencyclidine Scrn Not Detected Ur Amphetamines Screen Not Detected U Benzodiazepines Scrn Not Detected Urine Cocaine Screen Not Detected U Marijuana (THC) Screen POSITIVE H Ethyl Alcohol < 10 06/18/25 06/19/25 06/19/25 20:32 07:52 10:55 Sodium Potassium Chloride Carbon Dioxide Anion Gap BUN Creatinine Estim Creat Clear Calc Estimated GFR POC Glucose 212 H 288 H 188 H Random Glucose Calcium Magnesium Total Bilirubin Direct Bilirubin AST ALT Alkaline Phosphatase Troponin I High Sens Total Protein Albumin Triglycerides Cholesterol LDL Cholesterol, Calc HDL Cholesterol Lipase Hold Green Top Urine Color Urine Appearance Urine pH Ur Specific [place] Urine Protein Urine Glucose (UA) Urine Ketones Urine Blood Urine Nitrite Ur Leukocyte Esterase Urine RBC Urine WBC Ur Squamous Epith Cells Urine Bacteria Hyaline Casts Urine Opiates Screen Ur Buprenorphine Scrn Ur Oxycodone Screen Urine Methadone Screen Urine Fentanyl Screen Ur Barbiturates Screen Ur Phencyclidine Scrn Ur Amphetamines Screen U Benzodiazepines Scrn Urine Cocaine Screen U Marijuana (THC) Screen Ethyl Alcohol Preliminary micro results at discharge 06/18/25 16:19 Urine Culture - Preliminary Urine clean catch - Clean Catch Midstream Culture too young to evaluate. Discharge Plan Discharge Patient Disposition: Home, Self-Care Referrals: Physician,Unknown J [Primary Care Provider, Medical] - 1 Week Discharge Medications: New atorvastatin [Lipitor] 20 mg tablet 20 mg PO BEDTIME Qty: 90 0RF Rx Instructions: Take one capsule daily at bedtime Continued metformin 500 mg tablet extended release 24 hr 1,000 mg PO BID Discharge Orders: Discharge Order (Routine); Ordered 06/19/25 Ordered By: Nelly Cook Activity on Discharge: As tolerated Stand Alone Forms: Patient Portal Discharge page Print Language: Andorran Care Plan Goals: See below Health Concerns: Slurred speech, difficulty walking Plan of Treatment: You were admitted to the hospital for slurred speech and difficulty walking with a concern for possible transient ischemic attack. All imaging of head and brain was negative for acute abnormality, and you were seen by Neurology who felt this was not a neurological condition but possibly secondary to marijuana use. For hyperlipidemia, you will be prescribed atorvastatin 20 mg to be taken daily at bedtime. Follow up with PCP in 1-2 weeks for routine follow up and labs. Your urinalysis was equivocal for possible UTI, and likely contaminated. Your asymptomatic and will not be prescribed antibiotics upon discharge. If you develop urinary symptoms, please return to the ED or urgent care for re-evaluation If symptoms of difficulty walking and slurred speech recur, please return to the ED for further evaluation. Assessment: See discharge summary Discharge Date/Time: 06/19/25 17:01
[2025-06-19 16:10] LABS: Glucose, Whole Blood 190 mg/dL (60-115)
== END 2025-06-19 17:01 | disposition home or self-care (01) ==
LOC: HO.ED 16:47 → HO.EDOVER 16:52 → HO.IMC 06-19 07:43
PROVIDERS: Admitting Provider Internal Medicine; Emergency Provider Emergency Medicine; Visit Provider Student in an Organized Health Care Education/Training Program
DX: R47.81 Slurred speech (principal); R27.0 Ataxia, unspecified; R82.90 Unspecified abnormal findings in urine; E11.9 Type 2 diabetes mellitus without complications; F17.200 Nicotine dependence, unspecified, uncomplicated; E78.5 Hyperlipidemia, unspecified; Z79.4 Long term (current) use of insulin; Z79.899 Other long term (current) drug therapy
CPT/HCPCS: 36415; 70450; 70496; 70498; 70551; 80048; 80061; 80076; 80307; 81001; 82947; 83690; 83735; 84484; 85025; 85610; 87086; 87147; 93005; 96374; 97161; 97165; 99222; 99285; J0696

== ENCOUNTER → 2025-06-18 15:32 | Outpatient (BNV) | payer MEDICARE, MEDICAID, SELFPAY | PROVIDERS: Emergency Provider Emergency Medicine; Visit Provider Radiology Diagnostic Radiology | DX: I63.9 Cerebral infarction, unspecified (principal) | CPT/HCPCS: 70496; 70498 ==

== ENCOUNTER → 2025-06-18 15:34 | Outpatient (BNV) | payer MEDICARE, MEDICAID, SELFPAY | PROVIDERS: Admitting Provider Internal Medicine; Emergency Provider Emergency Medicine; Visit Provider Internal Medicine Cardiovascular Disease | DX: R00.0 Tachycardia, unspecified (principal) | CPT/HCPCS: 93010 ==

== ENCOUNTER → 2025-06-18 16:47 | Outpatient (BNV) | payer MEDICARE, MEDICAID, SELFPAY | PROVIDERS: Admitting Provider Internal Medicine; Emergency Provider Emergency Medicine; Visit Provider Student in an Organized Health Care Education/Training Program | DX: R27.0 Ataxia, unspecified (principal); R47.81 Slurred speech | CPT/HCPCS: 99223; 99239 ==

== ENCOUNTER → 2025-06-18 16:47 | Outpatient (BNV) | payer MEDICARE, MEDICAID, SELFPAY | PROVIDERS: Admitting Provider Internal Medicine; Emergency Provider Emergency Medicine; Visit Provider Psychiatry & Neurology Neurology | DX: R47.81 Slurred speech (principal); R27.0 Ataxia, unspecified | CPT/HCPCS: 99222 ==